=== PATIENT | male | born 1950 | race African-American/Black ===

== ENCOUNTER 2017-03-22 12:46 | Inpatient (IN) ==
[2017-03-22] MEDS ORDERED: DEXTROSE 50% 25 GM/50 ML SYRINGE IV ONE (12:48)
[2017-03-22] MEDS ORDERED: SODIUM CHLORIDE 0.9% 500 ML IV STA (13:17)
[2017-03-22 14:52] LABS: ABG Base Excess 1.4 MMOL/L (-2.5-2.5); ABG HCO3 25.5 MMOL/L (20-26); ABG Oxygen Saturation 92.6 % (95-100); ABG PCO2 38.6 MM HG (35-48); ABG PO2 67.9 MM HG (80-95); ABG TCO2 21.9 MMOL/L (23-27)
[2017-03-22 15:05] LABS: Basophils # 0.1 10*3/uL (0.0-0.2); Basophils % 0.3 % (0.0-0.8); Hematocrit 46.1 VOL% (42.0-52.0); Hemoglobin 15.7 GM/DL (14.0-18.0); Immature Granulocytes % 0.6 %; Immature Granulocytes Absolute 0.12 #; Lymphocytes # 2.6 10*3/uL (1.4-4.0); Lymphocytes % 13.2 % (21.2-54.2); Mean Corpuscular HGB Conc 34.1 GM/DL (32-36); Mean Corpuscular Hemoglobin 35 PG (27-34); Mean Corpuscular Volume 101.5 FL (87-102); Mean Platelet Volume 11.3 FL (9.6-12.0); Monocytes # 1.7 10*3/uL (0.11-0.8); Monocytes % 8.5 % (1.7-12.7); Neutrophils # 15.5 10*3/uL (1.4-7.4); Neutrophils % 77.4 % (38.7-73.9); Platelet Count 149 T/CUMM (130-400); Red Blood Count 4.54 MC/CUMM (3.8-5.5); Red Cell Distribution Width 14.6 % (9.3-17.3)
[2017-03-22 15:14] LABS: INR 1.2; PT Patient Result 12.2 SECS
[2017-03-22 15:25] LABS: Ammonia 41 UMOL/L (11-32)
[2017-03-22 15:27] LABS: Lactic Acid 4.2 MMOL/L (0.4-2.0)
[2017-03-22 15:33] LABS: Alanine Aminotransferase 35 U/L (16-61); Albumin 2.3 G/DL (3.4-5.0); Alkaline Phosphatase 130 U/L (45-117); Aspartate Amino Transferase 56 U/L (0-37); Blood Urea Nitrogen 26 MG/DL (7-18); Calcium 8.7 MG/DL (8.5-10.1); Glucose 99 MG/DL (74-106); Osmolality,Calculated 281.5 MOS/KG (273-304); Potassium 4.1 MMOL/L (3.5-5.1); Sodium 139 MMOL/L (136-145); Total Protein 8.8 G/DL (6.4-8.3)
[2017-03-22 15:44] LABS: Troponin I Only 0.034 NG/ML (0.00-0.045)
[2017-03-22] MEDS ORDERED: SODIUM CHLORIDE 0.9% 2,300 ML IV ONE (15:52)
[2017-03-22] MEDS ORDERED: SODIUM CHLORIDE 0.9% 1,000 ML IV SCH (16:00)
[2017-03-22 16:04] LABS: Prolactin 7.5 NG/ML
[2017-03-22 16:09] LABS: Apearance,Urine CLEAR (Clear); Bilirubin,Urine Negative (Negative); Blood, Urine Negative (Negative); Glucose,Urine (UA) 50 mg/dL (Negative); Ketones,Urine Negative (Negative); Mucus,Urine Occasional /LPF (Occasional); Nitrite,Urine Negative (Negative); Protein,Urine Negative; RBC,Urine 2 /HPF (0-4); Squamous Epithelial Cell,Urine Occasional /HPF (0-10); WBC,Urine 1 /HPF (0-6)
[2017-03-22 16:10] LABS: Urine Color Yellow (Yellow)
[2017-03-22 16:16] LABS: Barbiturates Screen,Urine Negative (Negative); Benzodiazepines Screen,Urine Negative (Negative); Cannabinoid Screen,Urine Negative (Negative); Opiate Screen,Urine Negative (Negative); Phencyclidine Screen,Urine Negative (Negative)
[2017-03-22] MEDS ORDERED: ONDANSETRON 4 MG/2 ML VIAL IV PRN (16:47)
[2017-03-22] MEDS ORDERED: hydrALAZINE 20 MG/1 ML VIAL IV PRN (16:52)
[2017-03-22 17:33] LABS: Sedimentation Rate-Westergren 39 MM/HR (0-20)
[2017-03-22 18:01] LABS: Glucose,CSF 35 MG/DL (40-70)
[2017-03-22 18:37] LABS: Appearance,CSF Clear; Red Blood Cell,CSF 15 C/CUMM; White Blood Cell,CSF 4 C/CUMM
[2017-03-22] MEDS ORDERED: levETIRAcetam 500 MG/5 ML VIAL IV ONE (18:44)
[2017-03-22] MEDS ORDERED: LEVOFLOXACIN INJ 150 ML IV ONE (18:44)
[2017-03-22 18:45] LABS: Lymphocytes,CSF 100 %
[2017-03-22] MEDS: LEVOFLOXACIN INJ 750 MG in PREMIX 1 EACH IV SCH (19:17)
[2017-03-22 19:52] LABS: Albumin 1.9 G/DL (3.4-5.0); Bilirubin,Total 0.6 MG/DL (0.2-1.0); Calcium 8.6 MG/DL (8.5-10.1); Osmolality,Calculated 282.3 MOS/KG (273-304); Potassium 4.4 MMOL/L (3.5-5.1); Total Protein 7.6 G/DL (6.4-8.3)
[2017-03-22] MEDS ORDERED: PIPERACILLIN/TAZOBACTAM 3,375 MG VIAL IV ONE (20:41)
[2017-03-22] MEDS ORDERED: SODIUM CHLORIDE 0.9% 100 ML IV ONE (20:41)
[2017-03-22] MEDS: PIPERACILLIN/TAZOBACTAM 3,375 MG in SODIUM CHLORIDE 0.9% 100 ML IV SCH (20:53)
[2017-03-22] MEDS: DEXTROSE 5% NACL 0.9% 1,000 ML IV SCH (21:30)
[2017-03-22 23:21] LABS: Platelet Estimate Adequate
[2017-03-23] MEDS: PIPERACILLIN/TAZOBACTAM 3,375 MG in SODIUM CHLORIDE 0.9% 100 ML IV SCH ×3 (02:04→21:35)
[2017-03-23 05:29] LABS: Basophils % 0.3 % (0.0-0.8); Eosinophils % 0.1 % (0.00-10.9); Hematocrit 34.6 VOL% (42.0-52.0); Hemoglobin 11.9 GM/DL (14.0-18.0); Immature Granulocytes % 0.5 %; Immature Granulocytes Absolute 0.07 #; Lymphocytes # 2.9 10*3/uL (1.4-4.0); Lymphocytes % 19.5 % (21.2-54.2); Mean Corpuscular HGB Conc 34.4 GM/DL (32-36); Mean Corpuscular Hemoglobin 35 PG (27-34); Mean Corpuscular Volume 101.5 FL (87-102); Mean Platelet Volume 11.3 FL (9.6-12.0); Monocytes # 1.4 10*3/uL (0.11-0.8); Monocytes % 9.6 % (1.7-12.7); Neutrophils # 10.3 10*3/uL (1.4-7.4); Platelet Count 115 T/CUMM (130-400); Red Blood Count 3.41 MC/CUMM (3.8-5.5); Red Cell Distribution Width 14.4 % (9.3-17.3); White Blood Count 14.7 T/CUMM (4-12)
[2017-03-23] MEDS: DEXTROSE 5% NACL 0.9% 1,000 ML IV SCH ×2 (05:29→21:32)
[2017-03-23 05:56] LABS: Hypochromasia Slight; Macrocytosis Slight
[2017-03-23 05:57] LABS: Giant Platelets Few; Platelet Estimate Decreased
[2017-03-23] MEDS: LEVOTHYROXINE 100 MCG VIAL IV SCH (06:08)
[2017-03-23 06:16] LABS: Albumin 1.8 G/DL (3.4-5.0); Bilirubin,Total 0.9 MG/DL (0.2-1.0); Potassium 3.8 MMOL/L (3.5-5.1)
[2017-03-23] MEDS ORDERED: ZINC OXIDE PASTE 113 GM TUBE TOP PRN (10:14)
[2017-03-23] MEDS: LEVOFLOXACIN INJ 750 MG in PREMIX 1 EACH IV SCH (16:12)
[2017-03-23] MEDS: ACYCLOVIR INJ 500 MG in SODIUM CHLORIDE 0.9% 100 ML IV SCH (18:25)
[2017-03-24] MEDS: ACYCLOVIR INJ 500 MG in SODIUM CHLORIDE 0.9% 100 ML IV SCH ×3 (02:46→18:30)
[2017-03-24] MEDS: LEVOTHYROXINE 100 MCG VIAL IV SCH (06:47)
[2017-03-24] MEDS: PIPERACILLIN/TAZOBACTAM 3,375 MG in SODIUM CHLORIDE 0.9% 100 ML IV SCH ×3 (06:53→21:49)
[2017-03-24] MEDS: DEXTROSE 5% NACL 0.9% 1,000 ML IV SCH ×3 (06:55→18:01)
[2017-03-24] MEDS: LEVOFLOXACIN INJ 750 MG in PREMIX 1 EACH IV SCH (16:42)
[2017-03-25] MEDS: ACYCLOVIR INJ 500 MG in SODIUM CHLORIDE 0.9% 100 ML IV SCH ×3 (01:13→18:15)
[2017-03-25] MEDS: DEXTROSE 5% NACL 0.9% 1,000 ML IV SCH ×3 (06:24→18:17)
[2017-03-25] MEDS: PIPERACILLIN/TAZOBACTAM 3,375 MG in SODIUM CHLORIDE 0.9% 100 ML IV SCH ×3 (06:25→21:40)
[2017-03-25] MEDS: LEVOTHYROXINE 100 MCG VIAL IV SCH (06:25)
[2017-03-25 06:47] LABS: Calcium 8.1 MG/DL (8.5-10.1); Osmolality,Calculated 291.4 MOS/KG (273-304); Potassium 3.5 MMOL/L (3.5-5.1)
[2017-03-25] MEDS: LEVOFLOXACIN INJ 750 MG in PREMIX 1 EACH IV SCH (15:47)
[2017-03-25] MEDS: ZALEPLON 5 MG CAPSULE PO PRN (23:45)
[2017-03-26] MEDS: ACYCLOVIR INJ 500 MG in SODIUM CHLORIDE 0.9% 100 ML IV SCH ×3 (00:58→18:10)
[2017-03-26 03:37] LABS: Pt O2 Delivery Device Room Air
[2017-03-26 03:41] LABS: ABG Base Excess 0.9 MMOL/L (-2.5-2.5); ABG HCO3 24.9 MMOL/L (20-26); ABG Oxygen Saturation 95.8 % (95-100); ABG PCO2 37.3 MM HG (35-48); ABG PH 7.442 (7.35-7.45)
[2017-03-26] MEDS: LEVOTHYROXINE 100 MCG VIAL IV SCH (06:48)
[2017-03-26 07:24] LABS: Basophils # 0.1 10*3/uL (0.0-0.2); Basophils % 0.5 % (0.0-0.8); Eosinophils # 0.2 10*3/uL (0.0-0.87); Eosinophils % 1.9 % (0.00-10.9); Hematocrit 33.6 VOL% (42.0-52.0); Hemoglobin 11.6 GM/DL (14.0-18.0); Immature Granulocytes % 0.4 %; Immature Granulocytes Absolute 0.04 #; Lymphocytes # 3.7 10*3/uL (1.4-4.0); Lymphocytes % 40.6 % (21.2-54.2); Mean Corpuscular HGB Conc 34.5 GM/DL (32-36); Mean Corpuscular Hemoglobin 35 PG (27-34); Mean Corpuscular Volume 101.2 FL (87-102); Mean Platelet Volume 10.5 FL (9.6-12.0); Monocytes # 1.6 10*3/uL (0.11-0.8); Monocytes % 17.7 % (1.7-12.7); Neutrophils # 3.6 10*3/uL (1.4-7.4); Neutrophils % 38.9 % (38.7-73.9); Platelet Count 181 T/CUMM (130-400); Red Blood Count 3.32 MC/CUMM (3.8-5.5); Red Cell Distribution Width 14.1 % (9.3-17.3); White Blood Count 9.1 T/CUMM (4-12)
[2017-03-26 07:55] LABS: Band Neutrophils 2 % (0-10); Eosinophils 2 % (0-10); Hypochromasia 2+; Lymphocytes 37 % (20-55); Microcytosis 1+; Platelet Estimate Adequate; Segmented Neutrophils 43 % (50-85); Total Cells Counted 100
[2017-03-26] MEDS: PIPERACILLIN/TAZOBACTAM 3,375 MG in SODIUM CHLORIDE 0.9% 100 ML IV SCH ×3 (08:11→23:21)
[2017-03-26 08:18] LABS: Calcium 7.9 MG/DL (8.5-10.1); Osmolality,Calculated 286.8 MOS/KG (273-304); Potassium 3.7 MMOL/L (3.5-5.1)
[2017-03-26] MEDS: DEXTROSE 5% NACL 0.9% 1,000 ML IV SCH (09:28)
[2017-03-26] MEDS: LEVOFLOXACIN INJ 750 MG in PREMIX 1 EACH IV SCH (16:46)
[2017-03-26] MEDS: levETIRAcetam 500 MG TABLET PO SCH (21:44)
[2017-03-26] MEDS: ZALEPLON 5 MG CAPSULE PO PRN (21:44)
[2017-03-27] MEDS: ACYCLOVIR INJ 500 MG in SODIUM CHLORIDE 0.9% 100 ML IV SCH ×2 (03:42→09:24)
[2017-03-27] MEDS: DEXTROSE 5% NACL 0.9% 1,000 ML IV SCH ×2 (03:43→11:30)
[2017-03-27] MEDS: LEVOTHYROXINE 100 MCG TABLET PO SCH (06:29)
[2017-03-27] MEDS: PIPERACILLIN/TAZOBACTAM 3,375 MG in SODIUM CHLORIDE 0.9% 100 ML IV SCH (06:31)
[2017-03-27] MEDS: ACYCLOVIR 800 MG TABLET PO SCH ×4 (09:49→21:29)
[2017-03-27] MEDS: levETIRAcetam 500 MG TABLET PO SCH ×2 (09:49→21:28)
[2017-03-27] MEDS: AMOXICILLIN/CLAV 500 MG TABLET PO SCH ×2 (14:21→21:28)
[2017-03-28] MEDS: ACYCLOVIR 800 MG TABLET PO SCH ×3 (06:34→10:46)
[2017-03-28] MEDS: LEVOTHYROXINE 100 MCG TABLET PO SCH (06:35)
[2017-03-28] MEDS: levETIRAcetam 500 MG TABLET PO SCH (08:30)
[2017-03-28] MEDS: AMOXICILLIN/CLAV 500 MG TABLET PO SCH (08:30)
[2017-03-28 08:45] VITALS: BP 98/66
== END 2017-03-28 12:22 | disposition home or self-care (01) | DRG 97 ==
LOC: EDUNIT# → EDBD → N.ED 12:46 → N.EDINP 16:06 → SUATTDRO 16:06 → N.ICU 20:41 → N.4E 03-23 10:21
PROVIDERS: ADMIT Internal Medicine; ATTEND Hospitalist

== ENCOUNTER 2017-05-06 10:27 | Inpatient (IN) ==
[2017-05-06] MEDS ORDERED: ENOXAPARIN 100 MG/ML SYRINGE SUBCUT STA (10:56)
[2017-05-06] MEDS ORDERED: ASPIRIN 325 MG TABLET PO STA (10:56)
[2017-05-06] MEDS ORDERED: SODIUM CHLORIDE 0.9% 500 ML IV STA (10:56)
[2017-05-06] MEDS ORDERED: ENOXAPARIN 80 MG/0.8 ML SYRINGE SUBCUT ONE (11:32)
[2017-05-06] MEDS ORDERED: ASPIRIN 325 MG TABLET ONE (11:32)
[2017-05-06 11:34] LABS: Apearance,Urine CLEAR (Clear); Bilirubin,Urine Negative (Negative); Blood, Urine Negative (Negative); Glucose,Urine (UA) Negative (Negative); Ketones,Urine Negative (Negative); Mucus,Urine Occasional /LPF (Occasional); Nitrite,Urine Negative (Negative); Protein,Urine Negative; RBC,Urine 1 /HPF (0-4); Squamous Epithelial Cell,Urine Occasional /HPF (0-10); Urine Color Yellow (Yellow); Urine Specific Gravity 1.024 (1.001-1.035); WBC,Urine 1 /HPF (0-6)
[2017-05-06] MEDS ORDERED: LEVOFLOXACIN INJ 500 MG in PREMIX 1 EACH IV STA (11:50)
[2017-05-06 11:52] LABS: Basophils % 0.5 % (0.0-0.8); Eosinophils # 0.1 10*3/uL (0.0-0.87); Eosinophils % 0.9 % (0.00-10.9); Hematocrit 39.4 VOL% (42.0-52.0); Immature Granulocytes % 0.4 %; Immature Granulocytes Absolute 0.03 #; Lymphocytes # 1.9 10*3/uL (1.4-4.0); Lymphocytes % 24.5 % (21.2-54.2); Mean Corpuscular Hemoglobin 34 PG (27-34); Mean Corpuscular Volume 104.2 FL (87-102); Mean Platelet Volume 11.9 FL (9.6-12.0); Monocytes # 0.7 10*3/uL (0.11-0.8); Monocytes % 9.5 % (1.7-12.7); Neutrophils # 4.9 10*3/uL (1.4-7.4); Neutrophils % 64.2 % (38.7-73.9); Platelet Count 129 T/CUMM (130-400); Red Blood Count 3.78 MC/CUMM (3.8-5.5); Red Cell Distribution Width 14.1 % (9.3-17.3); White Blood Count 7.7 T/CUMM (4-12)
[2017-05-06] MEDS ORDERED: LEVOFLOXACIN INJ 100 ML IV ONE (12:00)
[2017-05-06 12:20] LABS: Alanine Aminotransferase 36 U/L (16-61); Albumin 1.5 G/DL (3.4-5.0); Alkaline Phosphatase 55 U/L (45-117); Aspartate Amino Transferase 64 U/L (0-37); Blood Urea Nitrogen 25 MG/DL (7-18); Calcium 7.5 MG/DL (8.5-10.1); Glucose 118 MG/DL (74-106); Osmolality,Calculated 277.8 MOS/KG (273-304); Potassium 4.6 MMOL/L (3.5-5.1); Sodium 137 MMOL/L (136-145); Total Protein 5.9 G/DL (6.4-8.3); Troponin I Only < 0.015 NG/ML (0.00-0.045)
[2017-05-06 12:28] LABS: Lactic Acid 2.3 MMOL/L (0.4-2.0)
[2017-05-06] MEDS ORDERED: DOCUSATE SODIUM 100 MG CAPSULE PO PRN (14:09)
[2017-05-06] MEDS ORDERED: ONDANSETRON 4 MG/2 ML VIAL IV PRN (14:09)
[2017-05-06] MEDS ORDERED: diphenhydrAMINE CAP 25 MG CAPSULE PO PRN (14:09)
[2017-05-06] MEDS ORDERED: MORPHINE 2 MG/1 ML SYRINGE IV PRN (14:09)
[2017-05-06] MEDS ORDERED: ACETAMINOPHEN 325 MG TABLET PO PRN (14:09)
[2017-05-06] MEDS ORDERED: guaiFENesin/CODEINE 5 ML LIQUID PO PRN (14:14)
[2017-05-06] MEDS ORDERED: ALBUTEROL 2.5 MG/3 ML NEB RESP TX PRN (14:14)
[2017-05-06] MEDS ORDERED: SODIUM CHLORIDE 0.9% 2,300 ML IV ONE (15:00)
[2017-05-06] MEDS ORDERED: DEXTROSE 50% 25 GM/50 ML VIAL IV PRN (15:12)
[2017-05-06] MEDS ORDERED: GLUCAGON 1 MG VIAL IM PRN (15:12)
[2017-05-06] MEDS ORDERED: SODIUM CHLORIDE 0.9% 1,000 ML IV STA (17:47)
[2017-05-06] MEDS: INSULIN LISPRO 100 UNIT/ML SUBCUT SCH (18:06)
[2017-05-06] MEDS: PANTOPRAZOLE 40 MG TABLET PO SCH (18:12)
[2017-05-06] MEDS: SODIUM CHLORIDE 0.9% 1,000 ML IV SCH (18:12)
[2017-05-06] MEDS: ALBUTEROL/IPRATROPIUM 3 ML NEB RESP TX SCH (19:07)
[2017-05-06] MEDS: ENOXAPARIN 40 MG/0.4 ML SYRINGE SUBCUT SCH (21:21)
[2017-05-06] MEDS: PIPERACILLIN/TAZOBACTAM 3,375 MG in SODIUM CHLORIDE 0.9% 100 ML IV SCH (21:21)
[2017-05-07] MEDS: ALBUTEROL/IPRATROPIUM 3 ML NEB RESP TX SCH ×4 (00:25→18:58)
[2017-05-07] MEDS: PIPERACILLIN/TAZOBACTAM 3,375 MG in SODIUM CHLORIDE 0.9% 100 ML IV SCH ×3 (04:06→20:37)
[2017-05-07 05:33] LABS: Basophils % 0.2 % (0.0-0.8); Eosinophils # 0.1 10*3/uL (0.0-0.87); Eosinophils % 1.3 % (0.00-10.9); Hemoglobin 12.3 GM/DL (14.0-18.0); Immature Granulocytes % 0.5 %; Immature Granulocytes Absolute 0.04 #; Lymphocytes # 1.8 10*3/uL (1.4-4.0); Lymphocytes % 21.3 % (21.2-54.2); Mean Corpuscular HGB Conc 33.2 GM/DL (32-36); Mean Corpuscular Hemoglobin 34 PG (27-34); Mean Corpuscular Volume 103.4 FL (87-102); Mean Platelet Volume 11.6 FL (9.6-12.0); Monocytes % 11.6 % (1.7-12.7); Neutrophils # 5.5 10*3/uL (1.4-7.4); Neutrophils % 65.1 % (38.7-73.9); Platelet Count 152 T/CUMM (130-400); Red Blood Count 3.58 MC/CUMM (3.8-5.5); Red Cell Distribution Width 13.7 % (9.3-17.3); White Blood Count 8.4 T/CUMM (4-12)
[2017-05-07 06:31] LABS: Calcium 7.3 MG/DL (8.5-10.1); Osmolality,Calculated 283.1 MOS/KG (273-304); Potassium 3.8 MMOL/L (3.5-5.1)
[2017-05-07] MEDS: INSULIN LISPRO 100 UNIT/ML SUBCUT SCH ×2 (08:32→16:13)
[2017-05-07] MEDS: PANTOPRAZOLE 40 MG TABLET PO SCH (09:09)
[2017-05-07 10:38] LABS: Calcium 7.4 MG/DL (8.5-10.1); Osmolality,Calculated 286.1 MOS/KG (273-304); Potassium 4.3 MMOL/L (3.5-5.1)
[2017-05-07] MEDS ORDERED: ZINC OXIDE PASTE 113 GM TUBE TOP PRN (11:47)
[2017-05-07] MEDS: SODIUM CHLORIDE 0.9% 1,000 ML IV SCH ×4 (13:38→23:42)
[2017-05-07] MEDS: LEVOFLOXACIN INJ 750 MG in PREMIX 1 EACH IV SCH ×2 (13:39→16:12)
[2017-05-07] MEDS: BACITRACIN OINT 0.9 GM PACK TOP SCH (16:13)
[2017-05-07] MEDS ORDERED: FUROSEMIDE 20 MG/2 ML VIAL IV ONE (16:22)
[2017-05-07] MEDS: ENOXAPARIN 40 MG/0.4 ML SYRINGE SUBCUT SCH (20:37)
[2017-05-08] MEDS: ALBUTEROL/IPRATROPIUM 3 ML NEB RESP TX SCH ×4 (00:06→19:05)
[2017-05-08] MEDS: PIPERACILLIN/TAZOBACTAM 3,375 MG in SODIUM CHLORIDE 0.9% 100 ML IV SCH ×3 (03:01→20:17)
[2017-05-08 03:10] LABS: Basophils % 0.2 % (0.0-0.8); Eosinophils # 0.1 10*3/uL (0.0-0.87); Hematocrit 31.7 VOL% (42.0-52.0); Hemoglobin 10.6 GM/DL (14.0-18.0); Immature Granulocytes % 0.4 %; Immature Granulocytes Absolute 0.03 #; Lymphocytes # 2.1 10*3/uL (1.4-4.0); Lymphocytes % 25.2 % (21.2-54.2); Mean Corpuscular HGB Conc 33.4 GM/DL (32-36); Mean Corpuscular Hemoglobin 34 PG (27-34); Mean Corpuscular Volume 101.6 FL (87-102); Mean Platelet Volume 11.1 FL (9.6-12.0); Monocytes # 1.3 10*3/uL (0.11-0.8); Monocytes % 15.8 % (1.7-12.7); Neutrophils # 4.7 10*3/uL (1.4-7.4); Neutrophils % 57.4 % (38.7-73.9); Platelet Count 194 T/CUMM (130-400); Red Blood Count 3.12 MC/CUMM (3.8-5.5); Red Cell Distribution Width 13.8 % (9.3-17.3); White Blood Count 8.2 T/CUMM (4-12)
[2017-05-08 05:42] LABS: Calcium 7.2 MG/DL (8.5-10.1); Osmolality,Calculated 281.4 MOS/KG (273-304); Potassium 3.8 MMOL/L (3.5-5.1)
[2017-05-08 06:23] LABS: Eosinophils 1 % (0-10); Lymphocytes 20 % (20-55); Platelet Estimate Normal; Segmented Neutrophils 68 % (50-85); Total Cells Counted 100
[2017-05-08] MEDS: INSULIN LISPRO 100 UNIT/ML SUBCUT SCH ×2 (08:52→17:10)
[2017-05-08] MEDS: BACITRACIN OINT 0.9 GM PACK TOP SCH (09:06)
[2017-05-08] MEDS: PANTOPRAZOLE 40 MG TABLET PO SCH (09:06)
[2017-05-08] MEDS: LEVOFLOXACIN INJ 750 MG in PREMIX 1 EACH IV SCH (12:23)
[2017-05-08] MEDS: FUROSEMIDE 20 MG/2 ML VIAL IV SCH (17:09)
[2017-05-08] MEDS: ENOXAPARIN 40 MG/0.4 ML SYRINGE SUBCUT SCH (20:17)
[2017-05-08] MEDS ORDERED: traZODone 50 MG TABLET PO PRN (20:28)
[2017-05-09] MEDS: ALBUTEROL/IPRATROPIUM 3 ML NEB RESP TX SCH ×2 (00:03→06:52)
[2017-05-09] MEDS: PIPERACILLIN/TAZOBACTAM 3,375 MG in SODIUM CHLORIDE 0.9% 100 ML IV SCH ×3 (04:35→21:37)
[2017-05-09 05:32] LABS: Basophils % 0.5 % (0.0-0.8); Eosinophils # 0.1 10*3/uL (0.0-0.87); Eosinophils % 1.5 % (0.00-10.9); Hematocrit 31.5 VOL% (42.0-52.0); Hemoglobin 10.5 GM/DL (14.0-18.0); Immature Granulocytes % 0.5 %; Immature Granulocytes Absolute 0.04 #; Lymphocytes # 2.5 10*3/uL (1.4-4.0); Lymphocytes % 30.8 % (21.2-54.2); Mean Corpuscular HGB Conc 33.3 GM/DL (32-36); Mean Corpuscular Hemoglobin 34 PG (27-34); Mean Corpuscular Volume 101.9 FL (87-102); Mean Platelet Volume 10.8 FL (9.6-12.0); Monocytes # 1.6 10*3/uL (0.11-0.8); Neutrophils # 3.8 10*3/uL (1.4-7.4); Neutrophils % 46.7 % (38.7-73.9); Platelet Count 221 T/CUMM (130-400); Red Blood Count 3.09 MC/CUMM (3.8-5.5); Red Cell Distribution Width 13.9 % (9.3-17.3); White Blood Count 8.1 T/CUMM (4-12)
[2017-05-09 05:57] LABS: Giant Platelets Few; Hypochromasia 1+; Lymphocytes 33 % (20-55); Ovalocytes Slight; Platelet Estimate Adequate; Segmented Neutrophils 51 % (50-85); Total Cells Counted 100
[2017-05-09 06:18] LABS: Calcium 7.7 MG/DL (8.5-10.1); Osmolality,Calculated 284.1 MOS/KG (273-304); Potassium 3.9 MMOL/L (3.5-5.1)
[2017-05-09] MEDS: INSULIN LISPRO 100 UNIT/ML SUBCUT SCH ×2 (08:09→16:26)
[2017-05-09] MEDS: FUROSEMIDE 20 MG/2 ML VIAL IV SCH ×2 (10:11→16:25)
[2017-05-09] MEDS: BACITRACIN OINT 0.9 GM PACK TOP SCH (10:12)
[2017-05-09] MEDS: PANTOPRAZOLE 40 MG TABLET PO SCH (10:12)
[2017-05-09] MEDS: LEVOFLOXACIN INJ 750 MG in PREMIX 1 EACH IV SCH (11:58)
[2017-05-09] MEDS: MULTIVITAMIN (CENTRUM) TABLET PO SCH (16:27)
[2017-05-09] MEDS ORDERED: INSULIN GLARGINE 100 UNIT/ML SUBCUT SCH (21:00)
[2017-05-09] MEDS ORDERED: QUEtiapine 100 MG TABLET PO SCH (21:00)
[2017-05-09] MEDS ORDERED: DIVALPROEX ER 500 MG TABLET PO SCH (21:00)
[2017-05-09] MEDS ORDERED: SIMVASTATIN 20 MG TABLET PO SCH (21:00)
[2017-05-09] MEDS: GABAPENTIN 300 MG CAPSULE PO SCH (21:37)
[2017-05-09] MEDS: levETIRAcetam 500 MG TABLET PO SCH (21:37)
[2017-05-09] MEDS: ENOXAPARIN 40 MG/0.4 ML SYRINGE SUBCUT SCH (21:38)
[2017-05-10] MEDS: PIPERACILLIN/TAZOBACTAM 3,375 MG in SODIUM CHLORIDE 0.9% 100 ML IV SCH ×2 (04:13→11:42)
[2017-05-10 05:12] LABS: Basophils % 0.4 % (0.0-0.8); Eosinophils # 0.2 10*3/uL (0.0-0.87); Eosinophils % 3.1 % (0.00-10.9); Hematocrit 32.2 VOL% (42.0-52.0); Hemoglobin 11.1 GM/DL (14.0-18.0); Immature Granulocytes % 1.5 %; Immature Granulocytes Absolute 0.11 #; Lymphocytes # 2.9 10*3/uL (1.4-4.0); Lymphocytes % 37.9 % (21.2-54.2); Mean Corpuscular HGB Conc 34.5 GM/DL (32-36); Mean Corpuscular Hemoglobin 34 PG (27-34); Mean Corpuscular Volume 98.8 FL (87-102); Mean Platelet Volume 10.1 FL (9.6-12.0); Monocytes # 1.7 10*3/uL (0.11-0.8); Monocytes % 22.5 % (1.7-12.7); Neutrophils # 2.6 10*3/uL (1.4-7.4); Neutrophils % 34.6 % (38.7-73.9); Platelet Count 271 T/CUMM (130-400); Red Blood Count 3.26 MC/CUMM (3.8-5.5); Red Cell Distribution Width 13.8 % (9.3-17.3); White Blood Count 7.5 T/CUMM (4-12)
[2017-05-10 05:40] LABS: Eosinophils 7 % (0-10); Giant Platelets Few; Hypochromasia 1+; Lymphocytes 36 % (20-55); Ovalocytes Slight; Platelet Estimate Adequate; Segmented Neutrophils 36 % (50-85); Total Cells Counted 100
[2017-05-10 05:44] LABS: Calcium 7.9 MG/DL (8.5-10.1); Potassium 3.8 MMOL/L (3.5-5.1)
[2017-05-10] MEDS ORDERED: LEVOTHYROXINE 100 MCG TABLET PO SCH (07:00)
[2017-05-10 08:25] VITALS: BP 103/61
[2017-05-10] MEDS: GABAPENTIN 300 MG CAPSULE PO SCH (09:11)
[2017-05-10] MEDS: INSULIN LISPRO 100 UNIT/ML SUBCUT SCH (09:11)
[2017-05-10] MEDS: MULTIVITAMIN (CENTRUM) TABLET PO SCH (09:11)
[2017-05-10] MEDS: levETIRAcetam 500 MG TABLET PO SCH (09:12)
[2017-05-10] MEDS: BACITRACIN OINT 0.9 GM PACK TOP SCH (09:12)
[2017-05-10] MEDS: FUROSEMIDE 20 MG/2 ML VIAL IV SCH (09:12)
[2017-05-10] MEDS: PANTOPRAZOLE 40 MG TABLET PO SCH (09:12)
[2017-05-10] MEDS: LEVOFLOXACIN INJ 750 MG in PREMIX 1 EACH IV SCH (11:42)
[2017-05-12 12:31] LABS: Procalcitonin, S 0.83 ng/mL (<=0.15)
== END 2017-05-10 12:57 | disposition home or self-care (01) | DRG 871 ==
LOC: EDBD → EDUNIT# → N.ED 10:27 → N.EDINP 12:59 → N.TELES 17:18
PROVIDERS: ADMIT Internal Medicine; ATTEND Internal Medicine

== ENCOUNTER 2017-10-30 09:51 | Inpatient (IN) ==
[2017-10-30] MEDS ORDERED: SODIUM CHLORIDE 0.9% 500 ML IV STA ×2 (10:24→12:11)
[2017-10-30] MEDS: DEXTROSE 5% NACL 0.45% 1,000 ML IV SCH ×2 (11:14→20:41)
[2017-10-30 11:17] LABS: Basophils % 0.5 % (0.0-0.8); Hematocrit 49.2 VOL% (42.0-52.0); Hemoglobin 16.5 GM/DL (14.0-18.0); Immature Granulocytes % 0.4 %; Immature Granulocytes Absolute 0.03 #; Lymphocytes # 1.1 10*3/uL (1.4-4.0); Lymphocytes % 14.2 % (21.2-54.2); Mean Corpuscular HGB Conc 33.5 GM/DL (32-36); Mean Corpuscular Hemoglobin 34 PG (27-34); Mean Platelet Volume 10.9 FL (9.6-12.0); Monocytes # 1.6 10*3/uL (0.11-0.8); Monocytes % 21.4 % (1.7-12.7); Neutrophils # 4.7 10*3/uL (1.4-7.4); Neutrophils % 63.5 % (38.7-73.9); Platelet Count 180 T/CUMM (130-400); Red Blood Count 4.92 MC/CUMM (3.8-5.5); Red Cell Distribution Width 15.5 % (9.3-17.3); White Blood Count 7.4 T/CUMM (4-12)
[2017-10-30 11:42] LABS: Apearance,Urine CLEAR (Clear); Bilirubin,Urine Negative (Negative); Blood, Urine Negative (Negative); Glucose,Urine (UA) 50 mg/dL (Negative); Ketones,Urine 5 mg/dL (Negative); Mucus,Urine Few /LPF (Occasional); Nitrite,Urine Negative (Negative); Protein,Urine Negative; RBC,Urine 3 /HPF (0-4); Squamous Epithelial Cell,Urine Occasional /HPF (0-10); Urine Color Amber (Yellow); Urine Specific Gravity 1.021 (1.001-1.035); WBC,Urine 1 /HPF (0-6)
[2017-10-30 11:44] LABS: Albumin 2.2 G/DL (3.4-5.0); Bilirubin,Total 0.8 MG/DL (0.2-1.0); Calcium 9.2 MG/DL (8.5-10.1); Lactic Acid 4.1 MMOL/L (0.4-2.0); Osmolality,Calculated 271.8 MOS/KG (273-304); Potassium 4.4 MMOL/L (3.5-5.1); Total Protein 9.3 G/DL (6.4-8.3)
[2017-10-30 12:19] LABS: Band Neutrophils 9 % (0-10); Hypochromasia 1+; Lymphocytes 17 % (20-55); Metamyelocytes 6 %; Segmented Neutrophils 48 % (50-85); Total Cells Counted 100
[2017-10-30 12:20] LABS: Macrocytosis Slight
[2017-10-30] MEDS ORDERED: MEROPENEM 1,000 MG VIAL IV ONE (14:44)
[2017-10-30] MEDS ORDERED: LEVOFLOXACIN INJ 100 ML IV ONE (14:44)
[2017-10-30] MEDS: LEVOFLOXACIN INJ 500 MG in PREMIX 1 EACH IV SCH (15:00)
[2017-10-30] MEDS: MEROPENEM 1,000 MG in SODIUM CHLORIDE 0.9% 100 ML IV SCH (15:05)
[2017-10-30] MEDS ORDERED: ALBUTEROL/IPRATROPIUM 3 ML NEB RESP TX PRN (15:19)
[2017-10-30] MEDS ORDERED: ACETAMINOPHEN 325 MG TABLET PO PRN (15:20)
[2017-10-30] MEDS ORDERED: ONDANSETRON 4 MG/2 ML VIAL IV PRN (15:20)
[2017-10-30] MEDS ORDERED: MEROPENEM 1,000 MG in SODIUM CHLORIDE 0.9% 100 ML IV SCH (15:30)
[2017-10-30] MEDS: PANTOPRAZOLE 40 MG TABLET PO SCH (15:47)
[2017-10-30] MEDS: methylPREDNISolone SOD SUC 125 MG/2 ML VIAL IV SCH ×2 (16:15→23:21)
[2017-10-30] MEDS: ALBUTEROL/IPRATROPIUM 3 ML NEB RESP TX SCH (19:51)
[2017-10-30] MEDS ORDERED: DIVALPROEX ER 500 MG TABLET PO SCH (21:00)
[2017-10-30] MEDS ORDERED: levETIRAcetam 500 MG TABLET PO SCH (21:00)
[2017-10-30] MEDS: ENOXAPARIN 40 MG/0.4 ML SYRINGE SUBCUT SCH (21:28)
[2017-10-30] MEDS: VALPROIC ACID INJ 1,000 MG in SODIUM CHLORIDE 0.9% 100 ML IV SCH (21:43)
[2017-10-31] MEDS: ALBUTEROL/IPRATROPIUM 3 ML NEB RESP TX SCH ×4 (00:40→18:52)
[2017-10-31] MEDS: DEXTROSE 5% NACL 0.45% 1,000 ML IV SCH ×3 (03:29→13:52)
[2017-10-31] MEDS: MEROPENEM 1,000 MG in SODIUM CHLORIDE 0.9% 100 ML IV SCH ×2 (03:32→13:35)
[2017-10-31 04:33] LABS: Basophils % 0.3 % (0.0-0.8); Hematocrit 37.2 VOL% (42.0-52.0); Hemoglobin 12.9 GM/DL (14.0-18.0); Immature Granulocytes % 1.1 %; Lymphocytes # 0.9 10*3/uL (1.4-4.0); Lymphocytes % 10.5 % (21.2-54.2); Mean Corpuscular HGB Conc 34.7 GM/DL (32-36); Mean Corpuscular Hemoglobin 33 PG (27-34); Mean Corpuscular Volume 96.4 FL (87-102); Mean Platelet Volume 11.2 FL (9.6-12.0); Monocytes # 1.1 10*3/uL (0.11-0.8); Monocytes % 12.3 % (1.7-12.7); NRBC # 0.02 10*3/uL; Neutrophils # 6.7 10*3/uL (1.4-7.4); Neutrophils % 75.8 % (38.7-73.9); Platelet Count 166 T/CUMM (130-400); Red Blood Count 3.86 MC/CUMM (3.8-5.5); Red Cell Distribution Width 15.5 % (9.3-17.3); White Blood Count 8.9 T/CUMM (4-12)
[2017-10-31 04:40] LABS: ABG Base Excess -0.4 MMOL/L (-2.5-2.5); ABG Oxygen Saturation 95.1 % (95-100); ABG PCO2 29.3 MM HG (35-48); ABG PH 7.483 (7.35-7.45); ABG TCO2 19.1 MMOL/L (23-27); Allen Test Positive
[2017-10-31 04:51] LABS: Osmolality,Calculated 278.5 MOS/KG (273-304); Potassium 3.4 MMOL/L (3.5-5.1)
[2017-10-31] MEDS ORDERED: DEXTROSE 5% NACL 0.9% 1,000 ML IV SCH (06:30)
[2017-10-31] MEDS ORDERED: POTASSIUM CHLORIDE RIDER 20 MEQ in PREMIX 1 EACH IV ONE (06:31)
[2017-10-31] MEDS ORDERED: LEVOTHYROXINE 100 MCG TABLET PO SCH (07:00)
[2017-10-31] MEDS: methylPREDNISolone SOD SUC 125 MG/2 ML VIAL IV SCH ×2 (08:03→15:08)
[2017-10-31] MEDS: VALPROIC ACID INJ 1,000 MG in SODIUM CHLORIDE 0.9% 100 ML IV SCH ×2 (08:32→21:24)
[2017-10-31] MEDS: PANTOPRAZOLE 40 MG TABLET PO SCH (09:09)
[2017-10-31] MEDS: LEVOTHYROXINE 100 MCG VIAL IV SCH (11:03)
[2017-10-31] MEDS: PANTOPRAZOLE 40 MG VIAL IV SCH (11:03)
[2017-10-31] MEDS ORDERED: MAGNESIUM SULF RIDER 2 GM in PREMIX 1 EACH IV ONE (13:10)
[2017-10-31] MEDS: LEVOFLOXACIN INJ 500 MG in PREMIX 1 EACH IV SCH (13:52)
[2017-10-31] MEDS ORDERED: DEXTROSE 50% 25 GM/50 ML VIAL IV PRN (16:00)
[2017-10-31] MEDS ORDERED: SODIUM CHLORIDE 0.45% 1,000 ML IV SCH (16:00)
[2017-10-31] MEDS: INSULIN LISPRO 100 UNIT/ML SUBCUT SCH ×2 (16:13→19:32)
[2017-10-31] MEDS: ENOXAPARIN 40 MG/0.4 ML SYRINGE SUBCUT SCH (21:27)
[2017-10-31] MEDS ORDERED: ADENOSINE 6 MG/2 ML VIAL IV ONE (23:35)
[2017-10-31] MEDS ORDERED: METOPROLOL TARTRATE 5 MG/5 ML VIAL IV ONE ×3 (23:36→23:44)
[2017-10-31] MEDS ORDERED: SODIUM CHLORIDE 0.45% 1,000 ML IV ONE (23:36)
[2017-10-31] MEDS ORDERED: ADENOSINE 6 MG/2 ML VIAL ONE (23:36)
[2017-10-31] MEDS ORDERED: DILTIAZEM 50 MG/10 ML VIAL IV ONE (23:57)
[2017-11-01] MEDS: ALBUTEROL/IPRATROPIUM 3 ML NEB RESP TX SCH ×4 (00:10→19:03)
[2017-11-01] MEDS ORDERED: DILTIAZEM 50 MG/10 ML VIAL IV ONE ×2 (00:20)
[2017-11-01] MEDS: methylPREDNISolone SOD SUC 125 MG/2 ML VIAL IV SCH ×4 (00:34→23:22)
[2017-11-01] MEDS: INSULIN LISPRO 100 UNIT/ML SUBCUT SCH ×6 (00:35→22:07)
[2017-11-01] MEDS ORDERED: DILTIAZEM INJ 100 MG in SODIUM CHLORIDE 0.9% 100 ML IV SCH (01:00)
[2017-11-01] MEDS ORDERED: METOPROLOL TARTRATE 5 MG/5 ML VIAL IV ONE (01:00)
[2017-11-01] MEDS ORDERED: SODIUM CHLORIDE 0.45% 500 ML IV ONE (01:14)
[2017-11-01] MEDS ORDERED: DIGOXIN 0.5 MG/2 ML AMP IV ONE (01:30)
[2017-11-01] MEDS: POTASSIUM CHLORIDE RIDER 10 MEQ in PREMIX 1 EACH IV SCH ×4 (01:34→05:03)
[2017-11-01] MEDS: SODIUM CHLORIDE 0.45% 1,000 ML IV SCH ×3 (02:14→23:22)
[2017-11-01] MEDS ORDERED: AMIODARONE INJ 450 MG in DEXTROSE 5% 241 ML IV SCH (02:30)
[2017-11-01] MEDS ORDERED: AMIODARONE INJ 150 MG in DEXTROSE 5% 100 ML IV ONE (02:30)
[2017-11-01] MEDS: MEROPENEM 1,000 MG in SODIUM CHLORIDE 0.9% 100 ML IV SCH ×2 (02:48→15:50)
[2017-11-01 04:58] LABS: Basophils % 0.2 % (0.0-0.8); Hematocrit 37.3 VOL% (42.0-52.0); Hemoglobin 13.1 GM/DL (14.0-18.0); Immature Granulocytes % 0.7 %; Immature Granulocytes Absolute 0.08 #; Lymphocytes # 1.3 10*3/uL (1.4-4.0); Mean Corpuscular HGB Conc 35.1 GM/DL (32-36); Mean Corpuscular Hemoglobin 33 PG (27-34); Mean Corpuscular Volume 94.9 FL (87-102); Mean Platelet Volume 11.1 FL (9.6-12.0); Monocytes # 1.7 10*3/uL (0.11-0.8); Monocytes % 14.6 % (1.7-12.7); Neutrophils # 8.4 10*3/uL (1.4-7.4); Neutrophils % 73.5 % (38.7-73.9); Platelet Count 203 T/CUMM (130-400); Red Blood Count 3.93 MC/CUMM (3.8-5.5); Red Cell Distribution Width 15.3 % (9.3-17.3); White Blood Count 11.4 T/CUMM (4-12)
[2017-11-01 05:11] LABS: Alanine Aminotransferase 16 U/L (16-61); Albumin 1.7 G/DL (3.4-5.0); Alkaline Phosphatase 57 U/L (45-117); Aspartate Amino Transferase 26 U/L (0-37); Blood Urea Nitrogen 10 MG/DL (7-18); Calcium 8.3 MG/DL (8.5-10.1); Glucose 158 MG/DL (74-106); Osmolality,Calculated 291.6 MOS/KG (273-304); Sodium 146 MMOL/L (136-145); Total Protein 7.2 G/DL (6.4-8.3)
[2017-11-01 05:23] LABS: Lactic Acid 2.2 MMOL/L (0.4-2.0)
[2017-11-01 05:28] LABS: Band Neutrophils 6 % (0-10); Hypochromasia 1+; Lymphocytes 5 % (20-55); Platelet Estimate Adequate; Segmented Neutrophils 80 % (50-85); Total Cells Counted 100
[2017-11-01] MEDS ORDERED: ADENOSINE 6 MG/2 ML VIAL ONE (07:01)
[2017-11-01] MEDS ORDERED: ADENOSINE 6 MG/2 ML VIAL IV ONE (07:03)
[2017-11-01] MEDS ORDERED: MORPHINE 4 MG/1 ML VIAL ONE (07:10)
[2017-11-01] MEDS ORDERED: MORPHINE 4 MG/1 ML VIAL IV ONE (07:13)
[2017-11-01] MEDS: PANTOPRAZOLE 40 MG VIAL IV SCH (09:09)
[2017-11-01] MEDS: LEVOTHYROXINE 100 MCG VIAL IV SCH (09:09)
[2017-11-01] MEDS: AMIODARONE INJ 450 MG in DEXTROSE 5% 241 ML IV SCH (11:09)
[2017-11-01] MEDS: VALPROIC ACID INJ 1,000 MG in SODIUM CHLORIDE 0.9% 100 ML IV SCH ×2 (11:09→22:07)
[2017-11-01] MEDS: BACITRACIN OINT 0.9 GM PACK TOP SCH (11:09)
[2017-11-01] MEDS: LEVOFLOXACIN INJ 500 MG in PREMIX 1 EACH IV SCH (16:24)
[2017-11-01] MEDS: ENOXAPARIN 40 MG/0.4 ML SYRINGE SUBCUT SCH (22:08)
[2017-11-02] MEDS: INSULIN LISPRO 100 UNIT/ML SUBCUT SCH ×6 (00:19→21:27)
[2017-11-02] MEDS: ALBUTEROL/IPRATROPIUM 3 ML NEB RESP TX SCH ×4 (01:00→19:23)
[2017-11-02] MEDS: MEROPENEM 1,000 MG in SODIUM CHLORIDE 0.9% 100 ML IV SCH ×2 (02:50→15:00)
[2017-11-02 05:46] LABS: White Blood Count 12.8 T/CUMM (4-12)
[2017-11-02 05:47] LABS: Basophils % 0.2 % (0.0-0.8); Hemoglobin 12.5 GM/DL (14.0-18.0); Immature Granulocytes % 0.5 %; Immature Granulocytes Absolute 0.06 #; Lymphocytes # 1.4 10*3/uL (1.4-4.0); Lymphocytes % 11.1 % (21.2-54.2); Mean Corpuscular HGB Conc 33.8 GM/DL (32-36); Mean Corpuscular Hemoglobin 34 PG (27-34); Mean Corpuscular Volume 99.2 FL (87-102); Mean Platelet Volume 10.9 FL (9.6-12.0); Monocytes # 1.5 10*3/uL (0.11-0.8); Monocytes % 11.4 % (1.7-12.7); NRBC # 0.02 10*3/uL; Neutrophils # 9.8 10*3/uL (1.4-7.4); Neutrophils % 76.8 % (38.7-73.9); Platelet Count 170 T/CUMM (130-400); Red Blood Count 3.73 MC/CUMM (3.8-5.5); Red Cell Distribution Width 15.3 % (9.3-17.3)
[2017-11-02] MEDS: AMIODARONE INJ 450 MG in DEXTROSE 5% 241 ML IV SCH ×3 (06:20→21:27)
[2017-11-02 06:21] LABS: Albumin 1.7 G/DL (3.4-5.0); Bilirubin,Total 0.7 MG/DL (0.2-1.0); Calcium 8.3 MG/DL (8.5-10.1); Osmolality,Calculated 284.1 MOS/KG (273-304); Potassium 3.7 MMOL/L (3.5-5.1)
[2017-11-02] MEDS: VALPROIC ACID INJ 1,000 MG in SODIUM CHLORIDE 0.9% 100 ML IV SCH ×2 (08:00→21:27)
[2017-11-02] MEDS: PANTOPRAZOLE 40 MG VIAL IV SCH (08:00)
[2017-11-02] MEDS: LEVOTHYROXINE 100 MCG VIAL IV SCH (08:00)
[2017-11-02] MEDS: methylPREDNISolone SOD SUC 125 MG/2 ML VIAL IV SCH ×2 (08:00→16:10)
[2017-11-02] MEDS: BACITRACIN OINT 0.9 GM PACK TOP SCH (10:19)
[2017-11-02] MEDS: SODIUM CHLORIDE 0.45% 1,000 ML IV SCH ×2 (10:35→19:39)
[2017-11-02] MEDS: LEVOFLOXACIN INJ 500 MG in PREMIX 1 EACH IV SCH (14:27)
[2017-11-02] MEDS: ENOXAPARIN 40 MG/0.4 ML SYRINGE SUBCUT SCH (21:28)
[2017-11-03] MEDS: methylPREDNISolone SOD SUC 125 MG/2 ML VIAL IV SCH ×3 (00:30→16:40)
[2017-11-03] MEDS: INSULIN LISPRO 100 UNIT/ML SUBCUT SCH ×6 (00:39→21:11)
[2017-11-03] MEDS: ALBUTEROL/IPRATROPIUM 3 ML NEB RESP TX SCH ×4 (00:50→19:30)
[2017-11-03] MEDS: MEROPENEM 1,000 MG in SODIUM CHLORIDE 0.9% 100 ML IV SCH ×2 (03:11→14:18)
[2017-11-03 05:14] LABS: Calcium 6.4 MG/DL (8.5-10.1); Osmolality,Calculated 300.9 MOS/KG (273-304); Potassium 2.9 MMOL/L (3.5-5.1)
[2017-11-03 05:15] LABS: Prealbumin 4.3 MG/DL (20-40)
[2017-11-03] MEDS: LEVOTHYROXINE 100 MCG VIAL IV SCH (06:28)
[2017-11-03] MEDS: SODIUM CHLORIDE 0.45% 1,000 ML IV SCH ×2 (07:58→21:11)
[2017-11-03] MEDS ORDERED: MAGNESIUM SULF RIDER 2 GM in PREMIX 1 EACH IV ONE (08:21)
[2017-11-03] MEDS: PANTOPRAZOLE 40 MG VIAL IV SCH (08:54)
[2017-11-03] MEDS: VALPROIC ACID INJ 1,000 MG in SODIUM CHLORIDE 0.9% 100 ML IV SCH ×2 (08:54→21:06)
[2017-11-03] MEDS: BACITRACIN OINT 0.9 GM PACK TOP SCH (08:54)
[2017-11-03] MEDS: AMIODARONE INJ 450 MG in DEXTROSE 5% 241 ML IV SCH (09:29)
[2017-11-03] MEDS: POTASSIUM BICARB EFFERVESCENT 25 MEQ TABLET PO SCH ×2 (09:40→21:06)
[2017-11-03] MEDS: AMIODARONE 200 MG TABLET PO SCH ×2 (09:40→21:06)
[2017-11-03] MEDS: LEVOFLOXACIN INJ 500 MG in PREMIX 1 EACH IV SCH (13:30)
[2017-11-03] MEDS ORDERED: DILTIAZEM 50 MG/10 ML VIAL IV ONE (20:54)
[2017-11-03] MEDS ORDERED: DILTIAZEM 100 MG VIAL.ADD IV ONE (20:56)
[2017-11-03] MEDS ORDERED: SODIUM CHLORIDE 0.9% 100 ML IV ONE (20:56)
[2017-11-03] MEDS ORDERED: DILTIAZEM 25 MG/5 ML VIAL IV ONE (20:57)
[2017-11-03] MEDS ORDERED: DILTIAZEM INJ 100 MG in SODIUM CHLORIDE 0.9% 100 ML IV SCH (21:00)
[2017-11-03] MEDS: ENOXAPARIN 40 MG/0.4 ML SYRINGE SUBCUT SCH (21:06)
[2017-11-04] MEDS: methylPREDNISolone SOD SUC 125 MG/2 ML VIAL IV SCH ×3 (00:29→21:44)
[2017-11-04] MEDS: INSULIN LISPRO 100 UNIT/ML SUBCUT SCH ×6 (00:40→19:58)
[2017-11-04] MEDS: ALBUTEROL/IPRATROPIUM 3 ML NEB RESP TX SCH ×4 (01:18→19:32)
[2017-11-04] MEDS: MEROPENEM 1,000 MG in SODIUM CHLORIDE 0.9% 100 ML IV SCH ×2 (02:20→14:25)
[2017-11-04 04:52] LABS: Basophils % 0.2 % (0.0-0.8); Hematocrit 34.1 VOL% (42.0-52.0); Immature Granulocytes % 0.9 %; Immature Granulocytes Absolute 0.12 #; Lymphocytes % 7.4 % (21.2-54.2); Mean Corpuscular HGB Conc 35.2 GM/DL (32-36); Mean Corpuscular Hemoglobin 33 PG (27-34); Mean Corpuscular Volume 94.7 FL (87-102); Monocytes # 2.1 10*3/uL (0.11-0.8); Monocytes % 16.5 % (1.7-12.7); NRBC # 0.02 10*3/uL; Neutrophils # 9.7 10*3/uL (1.4-7.4); Platelet Count 168 T/CUMM (130-400); Red Cell Distribution Width 15.1 % (9.3-17.3); White Blood Count 12.9 T/CUMM (4-12)
[2017-11-04 05:13] LABS: Calcium 8.1 MG/DL (8.5-10.1)
[2017-11-04 05:14] LABS: Osmolality,Calculated 286.3 MOS/KG (273-304); Potassium 3.9 MMOL/L (3.5-5.1)
[2017-11-04 05:17] LABS: Band Neutrophils 2 % (0-10); Hypochromasia 1+; Lymphocytes 7 % (20-55); Platelet Estimate Normal; Segmented Neutrophils 82 % (50-85); Total Cells Counted 100
[2017-11-04] MEDS: LEVOTHYROXINE 100 MCG VIAL IV SCH (06:37)
[2017-11-04] MEDS: SODIUM CHLORIDE 0.45% 1,000 ML IV SCH ×3 (07:20→20:08)
[2017-11-04] MEDS: VALPROIC ACID INJ 1,000 MG in SODIUM CHLORIDE 0.9% 100 ML IV SCH ×2 (08:49→21:57)
[2017-11-04] MEDS: BACITRACIN OINT 0.9 GM PACK TOP SCH (08:49)
[2017-11-04] MEDS: AMIODARONE 200 MG TABLET PO SCH ×2 (09:50→21:43)
[2017-11-04] MEDS: POTASSIUM BICARB EFFERVESCENT 25 MEQ TABLET PO SCH ×2 (09:50→21:44)
[2017-11-04] MEDS: METOPROLOL TARTRATE 50 MG TABLET PO SCH ×2 (09:50→21:43)
[2017-11-04] MEDS: PANTOPRAZOLE 40 MG VIAL IV SCH (09:50)
[2017-11-04] MEDS: LEVOFLOXACIN INJ 500 MG in PREMIX 1 EACH IV SCH (13:31)
[2017-11-04] MEDS: ENOXAPARIN 40 MG/0.4 ML SYRINGE SUBCUT SCH (21:43)
[2017-11-05] MEDS: ALBUTEROL/IPRATROPIUM 3 ML NEB RESP TX SCH ×4 (00:12→19:56)
[2017-11-05] MEDS: INSULIN LISPRO 100 UNIT/ML SUBCUT SCH ×6 (00:24→20:11)
[2017-11-05] MEDS: MEROPENEM 1,000 MG in SODIUM CHLORIDE 0.9% 100 ML IV SCH ×2 (02:16→14:49)
[2017-11-05 05:37] LABS: Calcium 6.9 MG/DL (8.5-10.1)
[2017-11-05 05:38] LABS: Osmolality,Calculated 292.8 MOS/KG (273-304); Potassium 4.6 MMOL/L (3.5-5.1)
[2017-11-05] MEDS: SODIUM CHLORIDE 0.45% 1,000 ML IV SCH ×2 (06:29→17:08)
[2017-11-05] MEDS: LEVOTHYROXINE 100 MCG VIAL IV SCH (06:33)
[2017-11-05 07:44] LABS: Basophils % 0.1 % (0.0-0.8); Hematocrit 38.4 VOL% (42.0-52.0); Hemoglobin 13.3 GM/DL (14.0-18.0); Immature Granulocytes % 1.4 %; Immature Granulocytes Absolute 0.23 #; Lymphocytes # 1.5 10*3/uL (1.4-4.0); Mean Corpuscular HGB Conc 34.6 GM/DL (32-36); Mean Corpuscular Hemoglobin 34 PG (27-34); Mean Corpuscular Volume 97.5 FL (87-102); Mean Platelet Volume 10.9 FL (9.6-12.0); Monocytes # 2.6 10*3/uL (0.11-0.8); Monocytes % 15.5 % (1.7-12.7); NRBC # 0.03 10*3/uL; Neutrophils # 12.4 10*3/uL (1.4-7.4); Platelet Count 103 T/CUMM (130-400); Red Blood Count 3.94 MC/CUMM (3.8-5.5); Red Cell Distribution Width 14.9 % (9.3-17.3); White Blood Count 16.8 T/CUMM (4-12)
[2017-11-05] MEDS: AMIODARONE 200 MG TABLET PO SCH ×2 (09:40→21:22)
[2017-11-05] MEDS: VALPROIC ACID INJ 1,000 MG in SODIUM CHLORIDE 0.9% 100 ML IV SCH ×2 (09:45→21:25)
[2017-11-05] MEDS: METOPROLOL TARTRATE 50 MG TABLET PO SCH ×2 (09:45→21:22)
[2017-11-05] MEDS: PANTOPRAZOLE 40 MG VIAL IV SCH (09:45)
[2017-11-05] MEDS: POTASSIUM BICARB EFFERVESCENT 25 MEQ TABLET PO SCH ×2 (09:45→21:23)
[2017-11-05] MEDS: methylPREDNISolone SOD SUC 125 MG/2 ML VIAL IV SCH ×2 (09:47→21:28)
[2017-11-05] MEDS: BACITRACIN OINT 0.9 GM PACK TOP SCH (14:52)
[2017-11-05] MEDS: LEVOFLOXACIN INJ 500 MG in PREMIX 1 EACH IV SCH (14:53)
[2017-11-05] MEDS: ENOXAPARIN 40 MG/0.4 ML SYRINGE SUBCUT SCH (21:24)
[2017-11-06] MEDS: INSULIN LISPRO 100 UNIT/ML SUBCUT SCH ×4 (00:36→12:24)
[2017-11-06] MEDS: ALBUTEROL/IPRATROPIUM 3 ML NEB RESP TX SCH ×4 (01:32→19:35)
[2017-11-06] MEDS: MEROPENEM 1,000 MG in SODIUM CHLORIDE 0.9% 100 ML IV SCH ×2 (03:14→15:19)
[2017-11-06] MEDS: SODIUM CHLORIDE 0.45% 1,000 ML IV SCH (03:15)
[2017-11-06 03:50] LABS: Basophils % 0.1 % (0.0-0.8); Hematocrit 33.1 VOL% (42.0-52.0); Hemoglobin 11.3 GM/DL (14.0-18.0); Immature Granulocytes % 0.8 %; Immature Granulocytes Absolute 0.11 #; Lymphocytes # 1.1 10*3/uL (1.4-4.0); Lymphocytes % 8.1 % (21.2-54.2); Mean Corpuscular HGB Conc 34.1 GM/DL (32-36); Mean Corpuscular Hemoglobin 34 PG (27-34); Mean Corpuscular Volume 98.2 FL (87-102); Mean Platelet Volume 11.2 FL (9.6-12.0); Monocytes # 1.1 10*3/uL (0.11-0.8); Monocytes % 7.8 % (1.7-12.7); NRBC # 0.03 10*3/uL; Neutrophils # 11.4 10*3/uL (1.4-7.4); Neutrophils % 83.2 % (38.7-73.9); Platelet Count 137 T/CUMM (130-400); Red Blood Count 3.37 MC/CUMM (3.8-5.5); Red Cell Distribution Width 15.1 % (9.3-17.3); White Blood Count 13.7 T/CUMM (4-12)
[2017-11-06 04:14] LABS: Calcium 7.8 MG/DL (8.5-10.1); Osmolality,Calculated 285.4 MOS/KG (273-304); Potassium 4.4 MMOL/L (3.5-5.1)
[2017-11-06 04:15] LABS: Albumin 1.5 G/DL (3.4-5.0); Calcium 7.9 MG/DL (8.5-10.1); Osmolality,Calculated 285.4 MOS/KG (273-304); Potassium 4.5 MMOL/L (3.5-5.1)
[2017-11-06] MEDS: LEVOTHYROXINE 100 MCG VIAL IV SCH (06:31)
[2017-11-06] MEDS: METOPROLOL TARTRATE 50 MG TABLET PO SCH ×2 (10:03→21:19)
[2017-11-06] MEDS: AMIODARONE 200 MG TABLET PO SCH ×2 (10:05→21:19)
[2017-11-06] MEDS: POTASSIUM BICARB EFFERVESCENT 25 MEQ TABLET PO SCH (10:06)
[2017-11-06] MEDS: BACITRACIN OINT 28.35 GM TUBE TOP SCH (10:09)
[2017-11-06] MEDS: VALPROIC ACID INJ 1,000 MG in SODIUM CHLORIDE 0.9% 100 ML IV SCH (10:11)
[2017-11-06] MEDS: PANTOPRAZOLE 40 MG VIAL IV SCH (10:38)
[2017-11-06] MEDS: methylPREDNISolone SOD SUC 125 MG/2 ML VIAL IV SCH (10:44)
[2017-11-06] MEDS: levETIRAcetam LIQUID 100 MG/ML 30 ML/BOTTLE PO SCH ×2 (14:31→21:19)
[2017-11-06] MEDS: VALPROIC ACID 250 MG/5 ML UDCUP PO SCH ×2 (14:31→21:18)
[2017-11-06] MEDS: INSULIN REGULAR 100 UNIT/ML SUBCUT SCH ×2 (14:32→19:19)
[2017-11-06] MEDS: PANTOPRAZOLE 40 MG TABLET PO SCH (14:33)
[2017-11-06] MEDS: predniSONE 10 MG TABLET PO SCH (14:33)
[2017-11-06] MEDS: LEVOFLOXACIN INJ 500 MG in PREMIX 1 EACH IV SCH (16:46)
[2017-11-06] MEDS: ENOXAPARIN 40 MG/0.4 ML SYRINGE SUBCUT SCH (21:18)
[2017-11-06] MEDS: ZINC OXIDE PASTE 113 GM TUBE TOP SCH (21:19)
[2017-11-07] MEDS: INSULIN REGULAR 100 UNIT/ML SUBCUT SCH ×4 (01:17→18:16)
[2017-11-07] MEDS: MEROPENEM 1,000 MG in SODIUM CHLORIDE 0.9% 100 ML IV SCH ×2 (01:30→14:06)
[2017-11-07] MEDS: ALBUTEROL/IPRATROPIUM 3 ML NEB RESP TX SCH ×4 (01:58→19:04)
[2017-11-07] MEDS: SODIUM CHLORIDE 0.45% 1,000 ML IV SCH (02:55)
[2017-11-07] MEDS: LEVOTHYROXINE 100 MCG TABLET PO SCH (05:49)
[2017-11-07] MEDS: VALPROIC ACID 250 MG/5 ML UDCUP PO SCH ×2 (09:33→20:39)
[2017-11-07] MEDS: levETIRAcetam LIQUID 100 MG/ML 30 ML/BOTTLE PO SCH ×2 (09:33→20:39)
[2017-11-07] MEDS: METOPROLOL TARTRATE 50 MG TABLET PO SCH ×2 (09:33→20:39)
[2017-11-07] MEDS: PANTOPRAZOLE 40 MG TABLET PO SCH (09:33)
[2017-11-07] MEDS: ZINC OXIDE PASTE 113 GM TUBE TOP SCH ×2 (09:34→20:39)
[2017-11-07] MEDS: predniSONE 10 MG TABLET PO SCH (09:34)
[2017-11-07] MEDS: BACITRACIN OINT 28.35 GM TUBE TOP SCH (09:34)
[2017-11-07] MEDS: AMIODARONE 200 MG TABLET PO SCH ×2 (09:34→20:39)
[2017-11-07] MEDS: LEVOFLOXACIN INJ 500 MG in PREMIX 1 EACH IV SCH (14:30)
[2017-11-07] MEDS ORDERED: SKIN HEALING OINT (AQUAPHOR) 50 GM TUBE TOP PRN (18:17)
[2017-11-07] MEDS: ENOXAPARIN 40 MG/0.4 ML SYRINGE SUBCUT SCH (20:38)
[2017-11-07] MEDS ORDERED: SODIUM CHLORIDE 0.9% 250 ML IV ONE (23:44)
[2017-11-08] MEDS ORDERED: SODIUM CHLORIDE 0.9% 750 ML IV ONE ×2 (00:10→02:11)
[2017-11-08] MEDS: ALBUTEROL/IPRATROPIUM 3 ML NEB RESP TX SCH ×4 (00:41→18:58)
[2017-11-08] MEDS ORDERED: NOREPINEPHRINE 8 MG in SODIUM CHLORIDE 0.9% 242 ML IV PRN (02:05)
[2017-11-08] MEDS: MEROPENEM 1,000 MG in SODIUM CHLORIDE 0.9% 100 ML IV SCH ×2 (02:05→16:05)
[2017-11-08] MEDS: LEVOTHYROXINE 100 MCG TABLET PO SCH (06:05)
[2017-11-08] MEDS: INSULIN REGULAR 100 UNIT/ML SUBCUT SCH ×4 (06:05→18:41)
[2017-11-08] MEDS: METOPROLOL TARTRATE 50 MG TABLET PO SCH (09:44)
[2017-11-08] MEDS: PANTOPRAZOLE 40 MG TABLET PO SCH (10:44)
[2017-11-08] MEDS: levETIRAcetam LIQUID 100 MG/ML 30 ML/BOTTLE PO SCH ×2 (10:44→23:30)
[2017-11-08] MEDS: ZINC OXIDE PASTE 113 GM TUBE TOP SCH ×2 (10:44→23:27)
[2017-11-08] MEDS: VALPROIC ACID 250 MG/5 ML UDCUP PO SCH ×2 (10:44→22:27)
[2017-11-08] MEDS: AMIODARONE 200 MG TABLET PO SCH ×2 (10:44→22:27)
[2017-11-08] MEDS: BACITRACIN OINT 28.35 GM TUBE TOP SCH (10:44)
[2017-11-08] MEDS: predniSONE 10 MG TABLET PO SCH (10:44)
[2017-11-08 10:50] LABS: Calcium 7.7 MG/DL (8.5-10.1); Osmolality,Calculated 282.4 MOS/KG (273-304); Potassium 4.3 MMOL/L (3.5-5.1)
[2017-11-08] MEDS ORDERED: SODIUM CHLORIDE 0.9% 1,000 ML IV ONE (13:18)
[2017-11-08 13:47] LABS: Basophils % 0.1 % (0.0-0.8); Eosinophils # 0.1 10*3/uL (0.0-0.87); Eosinophils % 0.3 % (0.00-10.9); Hematocrit 36.4 VOL% (42.0-52.0); Hemoglobin 12.3 GM/DL (14.0-18.0); Immature Granulocytes % 0.4 %; Immature Granulocytes Absolute 0.07 #; Lymphocytes # 1.6 10*3/uL (1.4-4.0); Lymphocytes % 10.2 % (21.2-54.2); Mean Corpuscular HGB Conc 33.8 GM/DL (32-36); Mean Corpuscular Hemoglobin 34 PG (27-34); Mean Corpuscular Volume 100.6 FL (87-102); Mean Platelet Volume 10.8 FL (9.6-12.0); Monocytes # 0.9 10*3/uL (0.11-0.8); Monocytes % 5.7 % (1.7-12.7); Neutrophils # 13.1 10*3/uL (1.4-7.4); Neutrophils % 83.3 % (38.7-73.9); Platelet Count 193 T/CUMM (130-400); Red Blood Count 3.62 MC/CUMM (3.8-5.5); Red Cell Distribution Width 15.1 % (9.3-17.3); White Blood Count 15.7 T/CUMM (4-12)
[2017-11-08 14:07] LABS: Albumin 1.7 G/DL (3.4-5.0); Bilirubin,Total 0.5 MG/DL (0.2-1.0); Calcium 7.8 MG/DL (8.5-10.1); Osmolality,Calculated 284.3 MOS/KG (273-304); Potassium 4.9 MMOL/L (3.5-5.1); Total Protein 6.1 G/DL (6.4-8.3)
[2017-11-08 14:08] LABS: Lactic Acid 4.7 MMOL/L (0.4-2.0)
[2017-11-08 15:02] LABS: ABG Base Excess 6.2 MMOL/L (-2.5-2.5); ABG Oxygen Saturation 95.5 % (95-100); ABG PCO2 42.4 MM HG (35-48); ABG PH 7.467 (7.35-7.45); ABG PO2 78.6 MM HG (80-95); ABG TCO2 26.9 MMOL/L (23-27); Allen Test Positive
[2017-11-08] MEDS: LEVOFLOXACIN INJ 500 MG in PREMIX 1 EACH IV SCH (15:32)
[2017-11-08] MEDS: ENOXAPARIN 40 MG/0.4 ML SYRINGE SUBCUT SCH (22:27)
[2017-11-09] MEDS: ALBUTEROL/IPRATROPIUM 3 ML NEB RESP TX SCH ×4 (00:12→19:45)
[2017-11-09] MEDS: INSULIN REGULAR 100 UNIT/ML SUBCUT SCH ×5 (01:37→23:22)
[2017-11-09] MEDS: MEROPENEM 1,000 MG in SODIUM CHLORIDE 0.9% 100 ML IV SCH (02:58)
[2017-11-09 04:17] LABS: Basophils % 0.1 % (0.0-0.8); Eosinophils % 0.1 % (0.00-10.9); Hematocrit 35.4 VOL% (42.0-52.0); Hemoglobin 12.3 GM/DL (14.0-18.0); Immature Granulocytes % 0.7 %; Lymphocytes # 2.4 10*3/uL (1.4-4.0); Lymphocytes % 8.7 % (21.2-54.2); Mean Corpuscular HGB Conc 34.7 GM/DL (32-36); Mean Corpuscular Hemoglobin 33 PG (27-34); Mean Corpuscular Volume 95.2 FL (87-102); Mean Platelet Volume 12.6 FL (9.6-12.0); Monocytes # 1.7 10*3/uL (0.11-0.8); Monocytes % 6.2 % (1.7-12.7); NRBC # 0.02 10*3/uL; Neutrophils # 22.9 10*3/uL (1.4-7.4); Neutrophils % 84.2 % (38.7-73.9); Red Blood Count 3.72 MC/CUMM (3.8-5.5); Red Cell Distribution Width 14.8 % (9.3-17.3); White Blood Count 27.2 T/CUMM (4-12)
[2017-11-09 04:25] LABS: Platelet Count 106 T/CUMM (130-400)
[2017-11-09 04:56] LABS: Calcium 7.9 MG/DL (8.5-10.1); Osmolality,Calculated 286.3 MOS/KG (273-304); Potassium 4.5 MMOL/L (3.5-5.1)
[2017-11-09 04:59] LABS: Giant Platelets Few; Hypochromasia 1+; Platelet Estimate Decreased
[2017-11-09] MEDS: LEVOTHYROXINE 100 MCG TABLET PO SCH (07:06)
[2017-11-09] MEDS ORDERED: VALPROIC ACID INJ 1,000 MG in SODIUM CHLORIDE 0.9% 100 ML IV ONE (09:00)
[2017-11-09] MEDS: AMIODARONE 200 MG TABLET PO SCH ×2 (09:03→21:21)
[2017-11-09] MEDS: VALPROIC ACID 250 MG/5 ML UDCUP PO SCH ×2 (09:03→21:21)
[2017-11-09] MEDS: predniSONE 10 MG TABLET PO SCH (09:03)
[2017-11-09] MEDS: VANCOMYCIN INJ 1,000 MG in SODIUM CHLORIDE 0.9% 250 ML IV SCH ×2 (09:03→22:54)
[2017-11-09] MEDS: SODIUM CHLORIDE 0.9% 1,000 ML IV SCH ×2 (09:04→21:30)
[2017-11-09] MEDS: ZINC OXIDE PASTE 113 GM TUBE TOP SCH ×2 (09:04→21:22)
[2017-11-09] MEDS: BACITRACIN OINT 28.35 GM TUBE TOP SCH (09:04)
[2017-11-09] MEDS: PANTOPRAZOLE 40 MG TABLET PO SCH (09:05)
[2017-11-09] MEDS: levETIRAcetam LIQUID 100 MG/ML 30 ML/BOTTLE PO SCH ×2 (09:09→21:29)
[2017-11-09 09:39] LABS: Apearance,Urine CLEAR (Clear); Bilirubin,Urine Negative (Negative); Blood, Urine Negative (Negative); Glucose,Urine (UA) Negative (Negative); Ketones,Urine Negative (Negative); Mucus,Urine Occasional /LPF (Occasional); Nitrite,Urine Negative (Negative); Protein,Urine Negative; RBC,Urine 2 /HPF (0-4); Urine Color Yellow (Yellow); Urine Specific Gravity 1.011 (1.001-1.035); WBC,Urine 1 /HPF (0-6)
[2017-11-09] MEDS: PIPERACILLIN/TAZOBACTAM 3,375 MG in SODIUM CHLORIDE 0.9% 100 ML IV SCH ×2 (11:00→17:44)
[2017-11-10] MEDS: ALBUTEROL/IPRATROPIUM 3 ML NEB RESP TX SCH ×5 (00:59→23:56)
[2017-11-10] MEDS: PIPERACILLIN/TAZOBACTAM 3,375 MG in SODIUM CHLORIDE 0.9% 100 ML IV SCH ×3 (03:20→17:02)
[2017-11-10 05:04] LABS: Basophils # 0.1 10*3/uL (0.0-0.2); Basophils % 0.2 % (0.0-0.8); Eosinophils # 0.1 10*3/uL (0.0-0.87); Eosinophils % 0.3 % (0.00-10.9); Hematocrit 33.2 VOL% (42.0-52.0); Hemoglobin 11.6 GM/DL (14.0-18.0); Immature Granulocytes % 0.9 %; Immature Granulocytes Absolute 0.27 #; Lymphocytes # 3.1 10*3/uL (1.4-4.0); Lymphocytes % 10.9 % (21.2-54.2); Mean Corpuscular HGB Conc 34.9 GM/DL (32-36); Mean Corpuscular Hemoglobin 34 PG (27-34); Mean Corpuscular Volume 96.8 FL (87-102); Mean Platelet Volume 10.6 FL (9.6-12.0); Monocytes # 1.8 10*3/uL (0.11-0.8); Monocytes % 6.3 % (1.7-12.7); Neutrophils # 23.3 10*3/uL (1.4-7.4); Neutrophils % 81.4 % (38.7-73.9); Platelet Count 210 T/CUMM (130-400); Red Blood Count 3.43 MC/CUMM (3.8-5.5); Red Cell Distribution Width 14.9 % (9.3-17.3); White Blood Count 28.7 T/CUMM (4-12)
[2017-11-10 05:12] LABS: INR 1.1; PT Patient Result 11.9 SECS
[2017-11-10 05:23] LABS: Band Neutrophils 1 % (0-10); Hypochromasia 1+; Lymphocytes 11 % (20-55); Platelet Estimate Adequate; Segmented Neutrophils 83 % (50-85); Total Cells Counted 100
[2017-11-10 05:24] LABS: Target Cells Few
[2017-11-10 05:33] LABS: Calcium 7.5 MG/DL (8.5-10.1); Osmolality,Calculated 281.1 MOS/KG (273-304)
[2017-11-10] MEDS: INSULIN REGULAR 100 UNIT/ML SUBCUT SCH ×3 (05:51→19:10)
[2017-11-10] MEDS: SODIUM CHLORIDE 0.9% 1,000 ML IV SCH ×2 (06:43→17:00)
[2017-11-10] MEDS: LEVOTHYROXINE 100 MCG TABLET PO SCH ×2 (06:44→11:35)
[2017-11-10] MEDS ORDERED: VALPROIC ACID INJ 1,000 MG in SODIUM CHLORIDE 0.9% 100 ML IV ONE (08:30)
[2017-11-10] MEDS: VANCOMYCIN INJ 1,000 MG in SODIUM CHLORIDE 0.9% 250 ML IV SCH ×2 (09:06→21:40)
[2017-11-10] MEDS: ZINC OXIDE PASTE 113 GM TUBE TOP SCH ×2 (09:19→20:24)
[2017-11-10] MEDS ORDERED: LIDOCAINE 2% 5 ML VIAL ONE (11:10)
[2017-11-10] MEDS ORDERED: ETOMIDATE 20 MG/10 ML VIAL IV ONE (11:10)
[2017-11-10] MEDS: AMIODARONE 200 MG TABLET PO SCH ×2 (11:28→20:24)
[2017-11-10] MEDS: VALPROIC ACID 250 MG/5 ML UDCUP PO SCH ×3 (11:28→20:24)
[2017-11-10] MEDS: predniSONE 10 MG TABLET PO SCH (11:34)
[2017-11-10] MEDS: levETIRAcetam LIQUID 100 MG/ML 30 ML/BOTTLE PO SCH ×2 (11:34→20:23)
[2017-11-10] MEDS: PANTOPRAZOLE 40 MG TABLET PO SCH (11:35)
[2017-11-10] MEDS: BACITRACIN OINT 28.35 GM TUBE TOP SCH (11:56)
[2017-11-10] MEDS: guaiFENesin 200 MG/10 ML UDCUP PEG SCH ×2 (16:57→20:23)
[2017-11-11] MEDS: INSULIN REGULAR 100 UNIT/ML SUBCUT SCH ×4 (00:05→18:41)
[2017-11-11] MEDS: guaiFENesin 200 MG/10 ML UDCUP PEG SCH ×6 (00:05→20:33)
[2017-11-11] MEDS: PIPERACILLIN/TAZOBACTAM 3,375 MG in SODIUM CHLORIDE 0.9% 100 ML IV SCH ×3 (02:23→17:16)
[2017-11-11] MEDS: SODIUM CHLORIDE 0.9% 1,000 ML IV SCH ×3 (03:18→21:16)
[2017-11-11 04:01] LABS: Basophils % 0.1 % (0.0-0.8); Eosinophils # 0.1 10*3/uL (0.0-0.87); Eosinophils % 0.6 % (0.00-10.9); Hematocrit 30.1 VOL% (42.0-52.0); Immature Granulocytes % 0.4 %; Immature Granulocytes Absolute 0.05 #; Lymphocytes # 2.6 10*3/uL (1.4-4.0); Lymphocytes % 19.2 % (21.2-54.2); Mean Corpuscular HGB Conc 33.2 GM/DL (32-36); Mean Corpuscular Hemoglobin 33 PG (27-34); Mean Corpuscular Volume 100.3 FL (87-102); Mean Platelet Volume 11.1 FL (9.6-12.0); Monocytes # 1.3 10*3/uL (0.11-0.8); Monocytes % 9.4 % (1.7-12.7); Neutrophils # 9.6 10*3/uL (1.4-7.4); Neutrophils % 70.3 % (38.7-73.9); Platelet Count 185 T/CUMM (130-400); Red Cell Distribution Width 15.1 % (9.3-17.3); White Blood Count 13.7 T/CUMM (4-12)
[2017-11-11 04:31] LABS: Calcium 7.6 MG/DL (8.5-10.1); Osmolality,Calculated 284.8 MOS/KG (273-304); Potassium 3.8 MMOL/L (3.5-5.1)
[2017-11-11] MEDS: LEVOTHYROXINE 100 MCG TABLET PO SCH (06:26)
[2017-11-11] MEDS: ALBUTEROL/IPRATROPIUM 3 ML NEB RESP TX SCH ×3 (07:20→18:51)
[2017-11-11] MEDS: VALPROIC ACID 250 MG/5 ML UDCUP PO SCH ×3 (08:59→20:34)
[2017-11-11] MEDS: AMIODARONE 200 MG TABLET PO SCH ×2 (09:00→20:34)
[2017-11-11] MEDS: PANTOPRAZOLE 40 MG TABLET PO SCH (09:00)
[2017-11-11] MEDS: predniSONE 10 MG TABLET PO SCH (09:00)
[2017-11-11] MEDS: VANCOMYCIN INJ 1,000 MG in SODIUM CHLORIDE 0.9% 250 ML IV SCH ×2 (09:01→15:09)
[2017-11-11] MEDS: ZINC OXIDE PASTE 113 GM TUBE TOP SCH ×2 (09:09→20:34)
[2017-11-11] MEDS: BACITRACIN OINT 28.35 GM TUBE TOP SCH (10:57)
[2017-11-11] MEDS: levETIRAcetam LIQUID 100 MG/ML 30 ML/BOTTLE PO SCH ×2 (10:57→20:34)
[2017-11-11] MEDS: amLODIPine 5 MG TABLET PEG SCH (17:15)
[2017-11-12] MEDS: ALBUTEROL/IPRATROPIUM 3 ML NEB RESP TX SCH ×4 (00:26→18:50)
[2017-11-12] MEDS: INSULIN REGULAR 100 UNIT/ML SUBCUT SCH ×5 (00:36→23:52)
[2017-11-12] MEDS: VANCOMYCIN INJ 1,000 MG in SODIUM CHLORIDE 0.9% 250 ML IV SCH ×4 (00:37→23:51)
[2017-11-12] MEDS: guaiFENesin 200 MG/10 ML UDCUP PEG SCH ×7 (00:37→23:52)
[2017-11-12] MEDS: PIPERACILLIN/TAZOBACTAM 3,375 MG in SODIUM CHLORIDE 0.9% 100 ML IV SCH ×3 (02:11→17:59)
[2017-11-12 04:18] LABS: Basophils % 0.2 % (0.0-0.8); Eosinophils # 0.1 10*3/uL (0.0-0.87); Eosinophils % 0.7 % (0.00-10.9); Hematocrit 29.8 VOL% (42.0-52.0); Hemoglobin 10.1 GM/DL (14.0-18.0); Immature Granulocytes % 0.6 %; Immature Granulocytes Absolute 0.07 #; Lymphocytes # 1.8 10*3/uL (1.4-4.0); Lymphocytes % 15.4 % (21.2-54.2); Mean Corpuscular HGB Conc 33.9 GM/DL (32-36); Mean Corpuscular Hemoglobin 34 PG (27-34); Mean Corpuscular Volume 100.7 FL (87-102); Mean Platelet Volume 11.5 FL (9.6-12.0); Monocytes # 1.3 10*3/uL (0.11-0.8); Monocytes % 11.2 % (1.7-12.7); Neutrophils # 8.5 10*3/uL (1.4-7.4); Neutrophils % 71.9 % (38.7-73.9); Platelet Count 181 T/CUMM (130-400); Red Blood Count 2.96 MC/CUMM (3.8-5.5); Red Cell Distribution Width 15.3 % (9.3-17.3); White Blood Count 11.8 T/CUMM (4-12)
[2017-11-12 04:32] LABS: Calcium 7.3 MG/DL (8.5-10.1)
[2017-11-12] MEDS: LEVOTHYROXINE 100 MCG TABLET PO SCH (06:34)
[2017-11-12] MEDS: SODIUM CHLORIDE 0.9% 1,000 ML IV SCH ×2 (08:14→18:10)
[2017-11-12] MEDS: AMIODARONE 200 MG TABLET PO SCH ×2 (08:15→20:33)
[2017-11-12] MEDS: PANTOPRAZOLE 40 MG TABLET PO SCH (08:15)
[2017-11-12] MEDS: amLODIPine 5 MG TABLET PEG SCH (08:15)
[2017-11-12] MEDS: predniSONE 10 MG TABLET PO SCH (08:15)
[2017-11-12] MEDS: levETIRAcetam LIQUID 100 MG/ML 30 ML/BOTTLE PO SCH ×2 (08:15→20:33)
[2017-11-12] MEDS: ZINC OXIDE PASTE 113 GM TUBE TOP SCH ×2 (08:27→20:34)
[2017-11-12] MEDS: VALPROIC ACID 250 MG/5 ML UDCUP PO SCH ×3 (08:28→20:32)
[2017-11-12] MEDS: BACITRACIN OINT 28.35 GM TUBE TOP SCH (08:28)
[2017-11-12] MEDS ORDERED: VALPROIC ACID INJ 1,000 MG in SODIUM CHLORIDE 0.9% 100 ML IV ONE (08:30)
[2017-11-13] MEDS: ALBUTEROL/IPRATROPIUM 3 ML NEB RESP TX SCH ×4 (00:30→19:20)
[2017-11-13] MEDS: PIPERACILLIN/TAZOBACTAM 3,375 MG in SODIUM CHLORIDE 0.9% 100 ML IV SCH ×3 (02:08→18:11)
[2017-11-13] MEDS: guaiFENesin 200 MG/10 ML UDCUP PEG SCH ×5 (04:25→21:35)
[2017-11-13 05:23] LABS: Basophils % 0.1 % (0.0-0.8); Eosinophils # 0.1 10*3/uL (0.0-0.87); Eosinophils % 1.5 % (0.00-10.9); Hematocrit 26.5 VOL% (42.0-52.0); Hemoglobin 9.2 GM/DL (14.0-18.0); Immature Granulocytes % 0.1 %; Immature Granulocytes Absolute 0.01 #; Lymphocytes % 26.9 % (21.2-54.2); Mean Corpuscular HGB Conc 34.7 GM/DL (32-36); Mean Corpuscular Hemoglobin 34 PG (27-34); Mean Corpuscular Volume 98.1 FL (87-102); Mean Platelet Volume 10.9 FL (9.6-12.0); Monocytes % 12.9 % (1.7-12.7); Neutrophils # 4.4 10*3/uL (1.4-7.4); Neutrophils % 58.5 % (38.7-73.9); Platelet Count 178 T/CUMM (130-400); Red Cell Distribution Width 15.7 % (9.3-17.3); White Blood Count 7.6 T/CUMM (4-12)
[2017-11-13 05:26] LABS: Calcium 7.3 MG/DL (8.5-10.1); Osmolality,Calculated 284.8 MOS/KG (273-304); Potassium 3.8 MMOL/L (3.5-5.1)
[2017-11-13] MEDS: SODIUM CHLORIDE 0.9% 1,000 ML IV SCH (05:33)
[2017-11-13] MEDS: INSULIN REGULAR 100 UNIT/ML SUBCUT SCH ×3 (06:31→18:19)
[2017-11-13] MEDS: LEVOTHYROXINE 100 MCG TABLET PO SCH (06:33)
[2017-11-13] MEDS: PANTOPRAZOLE 40 MG TABLET PO SCH (08:16)
[2017-11-13] MEDS: levETIRAcetam LIQUID 100 MG/ML 30 ML/BOTTLE PO SCH ×2 (08:16→21:36)
[2017-11-13] MEDS: predniSONE 10 MG TABLET PO SCH (08:16)
[2017-11-13] MEDS: VALPROIC ACID 250 MG/5 ML UDCUP PO SCH ×3 (08:16→21:35)
[2017-11-13] MEDS: amLODIPine 5 MG TABLET PEG SCH (08:16)
[2017-11-13] MEDS: AMIODARONE 200 MG TABLET PO SCH ×2 (08:16→21:35)
[2017-11-13] MEDS: BACITRACIN OINT 28.35 GM TUBE TOP SCH (08:17)
[2017-11-13] MEDS: ZINC OXIDE PASTE 113 GM TUBE TOP SCH ×2 (08:17→21:37)
[2017-11-13] MEDS: VANCOMYCIN INJ 1,000 MG in SODIUM CHLORIDE 0.9% 250 ML IV SCH (08:17)
[2017-11-14] MEDS: ALBUTEROL/IPRATROPIUM 3 ML NEB RESP TX SCH ×4 (00:22→19:17)
[2017-11-14] MEDS: INSULIN REGULAR 100 UNIT/ML SUBCUT SCH ×4 (00:29→17:52)
[2017-11-14] MEDS: guaiFENesin 200 MG/10 ML UDCUP PEG SCH ×6 (00:30→21:24)
[2017-11-14] MEDS: PIPERACILLIN/TAZOBACTAM 3,375 MG in SODIUM CHLORIDE 0.9% 100 ML IV SCH ×3 (02:59→17:52)
[2017-11-14] MEDS: LEVOTHYROXINE 100 MCG TABLET PO SCH (06:26)
[2017-11-14] MEDS: AMIODARONE 200 MG TABLET PO SCH ×2 (10:22→21:23)
[2017-11-14] MEDS: BACITRACIN OINT 28.35 GM TUBE TOP SCH (10:22)
[2017-11-14] MEDS: VALPROIC ACID 250 MG/5 ML UDCUP PO SCH ×3 (10:22→21:24)
[2017-11-14] MEDS: predniSONE 10 MG TABLET PO SCH (10:22)
[2017-11-14] MEDS: ZINC OXIDE PASTE 113 GM TUBE TOP SCH ×2 (10:22→21:30)
[2017-11-14] MEDS: PANTOPRAZOLE 40 MG TABLET PO SCH (10:22)
[2017-11-14] MEDS: amLODIPine 5 MG TABLET PEG SCH (10:22)
[2017-11-14] MEDS: levETIRAcetam LIQUID 100 MG/ML 30 ML/BOTTLE PO SCH ×2 (10:25→21:23)
[2017-11-15] MEDS: INSULIN REGULAR 100 UNIT/ML SUBCUT SCH ×4 (00:05→18:38)
[2017-11-15] MEDS: guaiFENesin 200 MG/10 ML UDCUP PEG SCH ×6 (00:06→20:44)
[2017-11-15] MEDS: ALBUTEROL/IPRATROPIUM 3 ML NEB RESP TX SCH ×4 (01:16→20:40)
[2017-11-15] MEDS: PIPERACILLIN/TAZOBACTAM 3,375 MG in SODIUM CHLORIDE 0.9% 100 ML IV SCH ×3 (02:34→18:27)
[2017-11-15] MEDS: LEVOTHYROXINE 100 MCG TABLET PO SCH (05:30)
[2017-11-15 05:44] LABS: Basophils % 0.3 % (0.0-0.8); Eosinophils # 0.2 10*3/uL (0.0-0.87); Eosinophils % 1.7 % (0.00-10.9); Hematocrit 31.8 VOL% (42.0-52.0); Hemoglobin 10.8 GM/DL (14.0-18.0); Immature Granulocytes % 0.5 %; Immature Granulocytes Absolute 0.05 #; Lymphocytes # 3.1 10*3/uL (1.4-4.0); Lymphocytes % 29.3 % (21.2-54.2); Mean Corpuscular Hemoglobin 34 PG (27-34); Mean Platelet Volume 10.8 FL (9.6-12.0); Monocytes # 1.1 10*3/uL (0.11-0.8); Monocytes % 10.8 % (1.7-12.7); Neutrophils # 6.1 10*3/uL (1.4-7.4); Neutrophils % 57.4 % (38.7-73.9); Platelet Count 201 T/CUMM (130-400); Red Blood Count 3.18 MC/CUMM (3.8-5.5); Red Cell Distribution Width 15.9 % (9.3-17.3); White Blood Count 10.6 T/CUMM (4-12)
[2017-11-15 06:19] LABS: Albumin 1.7 G/DL (3.4-5.0); Bilirubin,Total 0.4 MG/DL (0.2-1.0); Calcium 7.9 MG/DL (8.5-10.1); Osmolality,Calculated 280.4 MOS/KG (273-304); Potassium 4.1 MMOL/L (3.5-5.1); Total Protein 6.3 G/DL (6.4-8.3)
[2017-11-15] MEDS: PANTOPRAZOLE 40 MG TABLET PO SCH (09:00)
[2017-11-15] MEDS: ZINC OXIDE PASTE 113 GM TUBE TOP SCH ×2 (09:35→20:45)
[2017-11-15] MEDS: VALPROIC ACID 250 MG/5 ML UDCUP PO SCH ×3 (10:56→20:44)
[2017-11-15] MEDS: levETIRAcetam LIQUID 100 MG/ML 30 ML/BOTTLE PO SCH ×2 (10:56→20:46)
[2017-11-15] MEDS: AMIODARONE 200 MG TABLET PO SCH ×2 (10:57→20:45)
[2017-11-15] MEDS: predniSONE 10 MG TABLET PO SCH (10:57)
[2017-11-15] MEDS: amLODIPine 5 MG TABLET PEG SCH (10:57)
[2017-11-15] MEDS: LANSOPRAZOLE ODT 30 MG TABLET PER TUBE SCH (11:22)
[2017-11-15] MEDS: BACITRACIN OINT 28.35 GM TUBE TOP SCH (13:10)
[2017-11-15] MEDS ORDERED: GLUCAGON 1 MG VIAL IM PRN (15:37)
[2017-11-16] MEDS: guaiFENesin 200 MG/10 ML UDCUP PEG SCH ×7 (00:06→23:50)
[2017-11-16] MEDS: INSULIN REGULAR 100 UNIT/ML SUBCUT SCH ×5 (00:06→23:50)
[2017-11-16] MEDS: ALBUTEROL/IPRATROPIUM 3 ML NEB RESP TX SCH ×4 (01:10→18:58)
[2017-11-16] MEDS: PIPERACILLIN/TAZOBACTAM 3,375 MG in SODIUM CHLORIDE 0.9% 100 ML IV SCH ×3 (02:03→17:56)
[2017-11-16] MEDS: LEVOTHYROXINE 100 MCG TABLET PO SCH (06:02)
[2017-11-16] MEDS: AMIODARONE 200 MG TABLET PO SCH ×2 (09:47→21:36)
[2017-11-16] MEDS: amLODIPine 5 MG TABLET PEG SCH (09:47)
[2017-11-16] MEDS: predniSONE 10 MG TABLET PO SCH (09:47)
[2017-11-16] MEDS: LANSOPRAZOLE ODT 30 MG TABLET PER TUBE SCH (09:47)
[2017-11-16] MEDS: levETIRAcetam LIQUID 100 MG/ML 30 ML/BOTTLE PO SCH ×2 (09:48→21:36)
[2017-11-16] MEDS: BACITRACIN OINT 28.35 GM TUBE TOP SCH (09:48)
[2017-11-16] MEDS: ZINC OXIDE PASTE 113 GM TUBE TOP SCH ×2 (09:48→21:35)
[2017-11-16] MEDS: VALPROIC ACID 250 MG/5 ML UDCUP PO SCH ×3 (09:52→21:35)
[2017-11-17] MEDS: ALBUTEROL/IPRATROPIUM 3 ML NEB RESP TX SCH ×4 (01:03→19:59)
[2017-11-17] MEDS: PIPERACILLIN/TAZOBACTAM 3,375 MG in SODIUM CHLORIDE 0.9% 100 ML IV SCH (02:08)
[2017-11-17] MEDS: guaiFENesin 200 MG/10 ML UDCUP PEG SCH ×5 (03:53→20:26)
[2017-11-17] MEDS: INSULIN REGULAR 100 UNIT/ML SUBCUT SCH ×3 (06:04→18:11)
[2017-11-17] MEDS: LEVOTHYROXINE 100 MCG TABLET PO SCH (06:04)
[2017-11-17] MEDS: predniSONE 10 MG TABLET PO SCH (10:25)
[2017-11-17] MEDS: LANSOPRAZOLE ODT 30 MG TABLET PER TUBE SCH (10:26)
[2017-11-17] MEDS: ZINC OXIDE PASTE 113 GM TUBE TOP SCH ×2 (10:26→20:26)
[2017-11-17] MEDS: BACITRACIN OINT 28.35 GM TUBE TOP SCH (10:26)
[2017-11-17] MEDS: amLODIPine 5 MG TABLET PEG SCH (10:26)
[2017-11-17] MEDS: AMIODARONE 200 MG TABLET PO SCH (10:26)
[2017-11-17] MEDS: VALPROIC ACID 250 MG/5 ML UDCUP PO SCH ×3 (10:27→20:25)
[2017-11-17] MEDS: levETIRAcetam LIQUID 100 MG/ML 30 ML/BOTTLE PO SCH ×2 (12:23→20:25)
[2017-11-17] MEDS: INSULIN GLARGINE 100 UNIT/ML SUBCUT SCH (12:53)
[2017-11-17] MEDS ORDERED: ENOXAPARIN 40 MG/0.4 ML SYRINGE SUBCUT SCH (21:00)
[2017-11-18] MEDS: ALBUTEROL/IPRATROPIUM 3 ML NEB RESP TX SCH ×3 (01:07→13:41)
[2017-11-18] MEDS: INSULIN REGULAR 100 UNIT/ML SUBCUT SCH ×3 (01:30→12:42)
[2017-11-18] MEDS: guaiFENesin 200 MG/10 ML UDCUP PEG SCH ×5 (01:37→16:24)
[2017-11-18] MEDS: LEVOTHYROXINE 100 MCG TABLET PO SCH (06:06)
[2017-11-18] MEDS ORDERED: AMIODARONE 200 MG TABLET PO SCH (09:00)
[2017-11-18] MEDS: levETIRAcetam LIQUID 100 MG/ML 30 ML/BOTTLE PO SCH (10:15)
[2017-11-18] MEDS: predniSONE 10 MG TABLET PO SCH (10:15)
[2017-11-18] MEDS: BACITRACIN OINT 28.35 GM TUBE TOP SCH (10:16)
[2017-11-18] MEDS: VALPROIC ACID 250 MG/5 ML UDCUP PO SCH ×2 (10:16→16:23)
[2017-11-18] MEDS: INSULIN GLARGINE 100 UNIT/ML SUBCUT SCH (10:17)
[2017-11-18] MEDS: ZINC OXIDE PASTE 113 GM TUBE TOP SCH (10:17)
[2017-11-18] MEDS: LANSOPRAZOLE ODT 30 MG TABLET PER TUBE SCH (10:36)
[2017-11-18 14:58] VITALS: BP 101/61
== END 2017-11-18 16:25 | disposition home health service (06) | DRG 871 ==
LOC: EDUNIT# → EDBD → N.ED 09:51 → SUATTDRO 13:28 → N.EDINP 13:28 → N.ICU 15:10 → N.TELES 11-06 13:03 → N.ICU 11-08 13:27 → N.2E 11-13 17:29
PROVIDERS: ADMIT Internal Medicine; ATTEND Internal Medicine
PROC: EGDWPEG (ICD-10-PCS; 2017-11-10 09:05)